=== PATIENT | female | born 1960 | race Caucasian/White ===

== ENCOUNTER 2019-03-07 02:09 | Emergency (ER) | payer OTHER ==
[~2019-03-07] VITALS: Ht 160 cm; Wt 90.0 kg
[2019-03-07] MEDS ORDERED: MORPHINE SULFATE 4 MG/ML, 1ML ONE (02:27)
[2019-03-07] MEDS ORDERED: DIPH,PERTUSS(ACELL),TET VAC/PF 0.5 ML IM-VACC ONE ×2 (02:28→03:00)
[2019-03-07] MEDS ORDERED: MORPHINE SULFATE 4 MG/ML, 1ML IVPush PRN (02:30)
[2019-03-07] MEDS ORDERED: SODIUM CHLORIDE FLUSH 10ML SYR IVF ONE (02:30)
[2019-03-07] MEDS ORDERED: DIPHTHERIA-TETANUS ADULT 0.5ML IM-VACC ONE (02:30)
--- NOTE | 2019-03-07 02:40 | NUR ---
PT MEDICATED PER EMAR FOR PAIN. PT TOLERATED WELL.
--- NOTE | 2019-03-07 02:40 | NUR ---
GAYLA. REPORT RECEIVED FROM EMS. PT HAD [facility] AT [facility] TODAY. PT C/O R HAND AND BILATERAL SHOULDER PAIN. NO LOC/TRAUMA. PT'S AOX4. RESPS EVEN AND UNLABORED. BP/SPO2 MONITORS IN PLACE. CALL LIGHT WITHIN REACH. EDMD AT BEDSIDE TO EVALUATE AT THIS TIME.
--- NOTE | 2019-03-07 02:42 | NUR ---
PT IN CT NOW.
--- NOTE | 2019-03-07 03:10 | NUR ---
PT BACK TO ROOM FROM CT NOW.
--- NOTE | 2019-03-07 04:34 | NUR ---
EDMD AT BEDSIDE TO EXPLAIN ALL RESULTS AT THIS TIME. AWAITING DISPO.
[2019-03-07 04:42] VITALS: BP 128/77
--- NOTE | 2019-03-07 05:40 | NUR ---
PT GIVEN DC INSTRUCTIONS AND SCRIPTS. PT EDUCATED REGARDING DC MEDICATIONS. PT AMB TO DC WITH STEADY GAIT. NO ACUTE DISTRESS AT DC.
== END 2019-03-07 05:41 | disposition home or self-care (01) ==
LOC: ED 05:35
DX: S42.232A 3-part fracture of surgical neck of left humerus, initial encounter for closed fracture (principal); S62.656A Nondisplaced fracture of middle phalanx of right little finger, initial encounter for closed fracture; S16.1XXA Strain of muscle, fascia and tendon at neck level, initial encounter; W01.0XXA Fall on same level from slipping, tripping and stumbling without subsequent striking against object, initial encounter; Y93.89 Activity, other specified; Y92.091 Bathroom in other non-institutional residence as the place of occurrence of the external cause; Y99.8 Other external cause status
CPT/HCPCS: 29105; 29125; 72125; 73030; 73130; 90471; 90714; 96374; 99284; J2270